=== PATIENT | female | born 1965 | race Caucasian/White ===

== ENCOUNTER → 2023-03-09 | Outpatient (CLI) | payer OTHER ==
[~2023-03-09] MED LIST: PERC7.5T12 PO; [UNRECOGNIZED DRUG - OTHER] PO
== END ==
LOC: M PLAIMG 13:02
PROVIDERS: ATTEND Physician Assistant
DX: M94.261 Chondromalacia, right knee (principal); M67.51 Plica syndrome, right knee

== ENCOUNTER → 2024-08-21 | Outpatient (CLI) | payer MEDICARE, MEDICAID | LOC: M RAD 15:04 | PROVIDERS: ATTEND Surgery | DX: K43.2 Incisional hernia without obstruction or gangrene (principal); K43.9 Ventral hernia without obstruction or gangrene ==